=== PATIENT | female | born 1990 | race African-American/Black ===

== ENCOUNTER 2022-05-07 08:24 | Emergency (ER) | payer SELFPAY ==
[~2022-05-07] VITALS: Ht 165.1 cm; Wt 86.2 kg
[2022-05-07] MEDS: IBUPROFEN 600 MG TAB PO STA (09:14)
[2022-05-07] MEDS ORDERED: FLONASE ALLERG9.9 ML INH (09:28)
[2022-05-07] MEDS ORDERED: IBUPROFEN600 MG PO (09:28)
[2022-05-07] MEDS ORDERED: CYCLOBENZAPRINE5 MG PO (09:29)
== END 2022-05-07 09:58 | disposition home or self-care (01) ==
LOC: FSED 08:35
DX: M25.511 Pain in right shoulder (principal); M77.8 Other enthesopathies, not elsewhere classified; R50.9 Fever, unspecified; R05.9 Cough, unspecified
CPT/HCPCS: 87400; 99283